=== PATIENT | male | born 1990 | race American Indian/Alaskan Native ===

== ENCOUNTER 2017-02-27 12:57 | Emergency (ER) | payer OTHER ==
[2017-02-27 13:09] VITALS: BP 159/100
[2017-02-27] MEDS ORDERED: BOOSTRIX IM ONE (13:22)
[2017-02-27] MEDS ORDERED: XYLOCAINE 1% MPF 5 mL INFILTRATI ONE (13:22)
--- NOTE | 2017-02-27 13:23 | Emergency Department Report ---
ED Laceration HPI - HPI Chief Complaint: Wound/Laceration Stated Complaint: RT ARM PAIN Time Seen by Provider: 02/27/17 13:19 Occurred When: Today Location: Upper Extremity Severity: moderate Tetanus Status: Not up to Date Laceration Symptoms: No Foreign Body Sensation, No Numbness, No Weakness, No Pain ED Review of Systems ROS: Stated complaint: RT ARM PAIN Other details as noted in HPI Comment: All other systems reviewed and negative Constitutional: no symptoms reported, see HPI Eyes: as per HPI ENT: as per HPI Respiratory: no symptoms reported Cardiovascular: as per HPI Endocrine: no symptoms reported Gastrointestinal: as per HPI Genitourinary: as per HPI Musculoskeletal: as per HPI Skin: as per HPI, other (ra lac) Neurological: as per HPI Psychiatric: as per HPI Hematological/Lymphatic: as per HPI ED Past Medical Hx - Past Medical History Previous Medical History?: No - Surgical History Past Surgical History?: No - Social History Smoking Status: Never Smoker Substance Use Type: None - Medications Home Medications: Home Medications Medication Instructions Recorded Confirmed Last Taken Type Amoxicillin [Trimox CAP] 500 mg PO BID #20 capsule 02/27/17 Unknown Rx Laceration Physical Exam - Exam General: Vital signs noted. No distress. Alert and acting appropriately. superficial wound ra n/v intact good pulses rapid cap refill bleeding controlled Laceration Location: Upper Extremity Full Body Front + Back: 1 - area of lac Laceration Exam: Yes Normal Distal CMS, No Foreign Body, No Exposed Tendon, Vessel, or Nerve, No Tendon Injury ED Course Vital Signs 02/27/17 12:58 Temperature 98.9 F Pulse Rate 65 Respiratory 15 Rate Blood Pressure 159/100 O2 Sat by Pulse 100 Oximetry - Reevaluation(s) Reevaluation #1: 02/27/17 14:25 to er p cutting arm on fish tank n/v intact sutured tolerated well dc instructions provided - Laceration /Wound Repair right arm Wound Location: lower extremity Wound Length (cm): 5 Wound's Depth, Shape: superficial Wound Explored: clean Irrigated w/ Saline (ccs): 20 Betadine Prep?: Yes Anesthesia: 1% Lidocaine Volume Anesthetic (ccs): 2 Wound Debrided: minimal Wound Repaired With: sutures Suture Size/Type: 4:0, nylon Number of Sutures: 13 Layer Closure?: No Sterile Dressing Applied?: Yes Progress: tolerated well ED Medical Decision Making - Medical Decision Making lac repair Critical care attestation.: If time is entered above; I have spent that time in minutes in the direct care of this critically ill patient, excluding procedure time. ED Disposition Clinical Impression: Laceration Disposition: DC-01 TO HOME OR SELFCARE Is pt being admited?: No Does the pt Need Aspirin: No Condition: Stable Instructions: Suture Care (ED), Laceration (ED) Additional Instructions: keep clean and covered minimize bending of the arm ice and elevation today motrin or tylenol for pain change dressing every 12 hours clean w soap and water the recover with guaze and the abbey wrap return as discussed to have sutures removed med as ordered Prescriptions: Amoxicillin [Trimox CAP] 500 mg PO BID #20 capsule Referrals: PRIMARY CARE, [Primary Care Provider] - 3-5 Days Forms: Work/School Release Form(ED) Time of Disposition: 14:11
== END 2017-02-27 14:20 | disposition home or self-care (01) ==
LOC: ED 12:57
DX: S41.111A Laceration without foreign body of right upper arm, initial encounter (principal); X58.XXXA Exposure to other specified factors, initial encounter; Y93.89 Activity, other specified; Y92.89 Other specified places as the place of occurrence of the external cause; Y99.8 Other external cause status
CPT/HCPCS: 90471; 90715

== ENCOUNTER 2017-06-12 15:20 | Emergency (ER) | payer SELFPAY ==
[2017-06-12 15:49] LABS: Basophils % (Auto) 0.7 % (0.0-1.8); Eosinophils % (Auto) 1.9 % (0.0-4.3); Hematocrit 43.4 % (35.5-45.6); Hemoglobin 14.6 gm/dl (11.8-15.2); Mean Corpuscular HGB Conc 34 % (32-34); Mean Corpuscular Hemoglobin 30 pg (28-32); Mean Corpuscular Volume 90 fl (84-94); Platelet Count 186 K/mm3 (140-440); Red Blood Count 4.84 M/mm3 (3.65-5.03); Red Cell Distribution Width 13.4 % (13.2-15.2); White Blood Count 3.9 K/mm3 (4.5-11.0)
[2017-06-12 16:00] LABS: Urine Drugs of Abuse Note Disclamer
[2017-06-12 16:09] LABS: Anion Gap 17 mmol/L; BUN/Creatinine Ratio 16; Blood Urea Nitrogen 16 mg/dL (9-20); Calcium 9.4 mg/dL (8.4-10.2); Carbon Dioxide 25 mmol/L (22-30); Glucose 89 mg/dL (75-100); Potassium 4.2 mmol/L (3.6-5.0); Sodium 140 mmol/L (137-145)
[2017-06-12 16:13] LABS: Bilirubin,Urine NEG (Negative); Blood,Urine NEG (Negative); Ketones,Urine NEG (Negative); Leukocyte Esterase,Urine NEG (Negative); Mucus,Urine FEW /HPF; Nitrite,Urine NEG (Negative); Protein,Urine <15 mg/dL mg/dL (Negative); Urobilinogen,Urine < 2.0 mg/dL (<2.0); WBC,Urine < 1.0 /HPF (0.0-6.0)
--- NOTE | 2017-06-12 20:45 | Emergency Department Report ---
HPI - General Chief Complaint: Medical Clearance Time Seen by Provider: 06/12/17 20:24 - HPI HPI: This is a 26-year-old Afro-[place]enian male who presents to the emergency department with complaint of some anger issues and hoping to get some help with anger management counseling. He says that he will get set off or something will trigger his anger and he will try to remove himself from the situation but this is not always feasible as he does have a full-time job. Sometimes he tries to compartmentalize or internalize this but he says that it will "fester" and he feels that has to be dealt with. He did a Internet search for anger management counseling and found a facility called [facility], but says that when he went to see that place or spoke to them that he was told that he needed to be a court order to attend their facility. He denies any suicidal or homicidal ideations or any hallucinations. He denies any diagnosed psychiatric conditions or past medical history. ED Past Medical Hx - Past Medical History Previous Medical History?: No - Surgical History Past Surgical History?: No - Social History Smoking Status: Never Smoker Substance Use Type: None - Medications Home Medications: Home Medications Medication Instructions Recorded Confirmed Last Taken Type Amoxicillin [Trimox CAP] 500 mg PO BID #20 capsule 02/27/17 Unknown Rx ED Review of Systems ROS: Stated complaint: MEDICAL EVALUATION FOR ANGER Other details as noted in HPI Comment: All other systems reviewed and negative Constitutional: denies: chills, fever Eyes: denies: eye pain, eye discharge, vision change ENT: denies: ear pain, throat pain Respiratory: denies: cough, shortness of breath, wheezing Cardiovascular: denies: chest pain, palpitations Gastrointestinal: denies: abdominal pain, nausea, diarrhea Genitourinary: denies: urgency, dysuria Musculoskeletal: denies: back pain, joint swelling, arthralgia Skin: denies: rash, lesions Neurological: denies: headache, weakness, paresthesias Psychiatric: denies: auditory hallucinations, visual hallucinations, homicidal thoughts, suicidal thoughts Physical Exam - Physical Exam Vital Signs: Vital Signs 06/12/17 06/12/17 15:27 19:45 Temperature 98.6 F 98.2 F Pulse Rate 66 60 Respiratory 16 18 Rate Blood Pressure 124/73 122/83 O2 Sat by Pulse 99 98 Oximetry Physical Exam: GENERAL: The patient is well-developed well-nourished. HENT: Normocephalic. Atraumatic. Patient has moist mucous membranes. EYES: Extraocular motions are intact. Pupils equal reactive to light bilaterally. NECK: Supple. Trachea is midline. CHEST/LUNGS: Clear to auscultation. There is no respiratory distress noted. HEART/CARDIOVASCULAR: Regular. There is no tachycardia. There is no gallop rub or murmur. ABDOMEN: Abdomen is soft, nontender. Patient has normal bowel sounds. There is no abdominal distention. SKIN: Skin is warm and dry. NEURO: The patient is awake, alert, and oriented. The patient is cooperative. The patient has no focal neurologic deficits. The patient has normal speech and gait. MUSCULOSKELETAL: There is no tenderness or deformity. There is no limitation range of motion. There is no evidence of acute injury. ED Course Vital Signs 06/12/17 06/12/17 15:27 19:45 Temperature 98.6 F 98.2 F Pulse Rate 66 60 Respiratory 16 18 Rate Blood Pressure 124/73 122/83 O2 Sat by Pulse 99 98 Oximetry ED Medical Decision Making - Lab Data Result diagrams: 06/12/17 15:38 06/12/17 15:38 - Medical Decision Making The patient is here because he admits to a anger problem and is looking for some treatment and/or counseling for anger management. He does not have any suicidal or homicidal ideations or any hallucinations. As far as I know, there was no altercations or threats made that required him to come into the hospital today. He has been calm and appropriate and is of sound mind. For all these reasons the patient does not appear to be a candidate to be made a 1013. His labs are unremarkable. Vital signs stable throughout his ED course. I spoke to the crisis counselor who recommended referral to the [facility]. All this information was given to the patient and he understands that he should go there either as a walk-in or to make an appointment but to return to the emergency Department with any worsening of his symptoms or any distress. Discharge instructions were given while he is in the emergency department and all questions have been answered. - Differential Diagnosis bipolar disorder, mood disorder, substance abuse Critical Care Time: No Critical care attestation.: If time is entered above; I have spent that time in minutes in the direct care of this critically ill patient, excluding procedure time. ED Disposition Clinical Impression: Anger reaction Disposition: DC-01 TO HOME OR SELFCARE Is pt being admited?: No Condition: Stable Additional Instructions: Please follow up with the [facility] facility regarding your anger management. I believe that they take walk-ins but he may want to call and make an appointment. Return to the emergency Department with any worsening of your symptoms or any acute distress. Referrals: [facility] [Outside] - 3-5 Days [facility] [Outside] - 3-5 Days Time of Disposition: 22:23
[2017-06-12 21:19] VITALS: BP 124/74
== END 2017-06-12 22:45 | disposition home or self-care (01) ==
LOC: ED 15:20
DX: R45.4 Irritability and anger (principal)
CPT/HCPCS: 36415; 80048; 80307; 81001; 85025; 99283; G0480; 80320

== ENCOUNTER 2021-09-06 10:52 | Emergency (ER) | payer SELFPAY ==
[2021-09-06 11:01] VITALS: BP 132/78
[2021-09-06] MEDS ORDERED: levETIRAcetam 1000 MG/NS 0.75% 1,000 MG/100 ML BAG IV ONE (11:08)
[2021-09-06] MEDS ORDERED: SODIUM CHLORIDE 0.9% 1000 ML 1,000 ML IV ONE (11:08)
--- NOTE | 2021-09-06 11:37 | Emergency Department Report ---
ED Seizure HPI - General Chief Complaint: Seizure Stated Complaint: POSS SEIZURE Time Seen by Provider: 09/06/21 11:07 Source: EMS Mode of arrival: Stretcher Limitations: No Limitations - History of Present Illness Initial Comments: seizures medicated with versed and ativan in the field he was [place] in [place] [employer] [facility] [place] for having seizure, he was combative in the field and was given ativan and versed Complaint: seizure -: Sudden Witnessed:: Yes Trauma: No Place: street/outdoors Possible Precipitating Event: medication - Related Data Previous Rx's Medication Instructions Recorded Last Taken Type Amoxicillin [Trimox CAP] 500 mg PO BID #20 capsule 02/27/17 Unknown Rx Allergies Allergy/AdvReac Type Severity Reaction Status Date / Time No Known Allergies Allergy Verified 06/12/17 15:27 ED Review of Systems ROS: Stated complaint: POSS SEIZURE Other details as noted in HPI Constitutional: denies: chills, fever Eyes: denies: eye pain, eye discharge, vision change ENT: denies: ear pain, throat pain Respiratory: denies: cough, shortness of breath, wheezing Cardiovascular: denies: chest pain, palpitations Endocrine: no symptoms reported Gastrointestinal: denies: abdominal pain, nausea, diarrhea Genitourinary: denies: urgency, dysuria Musculoskeletal: denies: back pain, joint swelling, arthralgia Skin: denies: rash, lesions Neurological: denies: headache, weakness, paresthesias Psychiatric: denies: anxiety, depression Hematological/Lymphatic: denies: easy bleeding, easy bruising ED Past Medical Hx - Past Medical History Previous Medical History?: Yes Hx Seizures: Yes - Social History Smoking Status: Never Smoker Substance Use Type: None - Medications Home Medications: Home Medications Medication Instructions Recorded Confirmed Last Taken Type Amoxicillin [Trimox CAP] 500 mg PO BID #20 capsule 02/27/17 Unknown Rx ED Physical Exam - General Limitations: No Limitations General appearance: alert, in no apparent distress, other (looks unkempt ) - Head Head exam: Present: atraumatic, normocephalic - Eye Eye exam: Present: normal appearance - ENT ENT exam: Present: mucous membranes moist - Neck Neck exam: Present: normal inspection - Respiratory Respiratory exam: Present: normal lung sounds bilaterally. Absent: respiratory distress - Cardiovascular Cardiovascular Exam: Present: regular rate, normal rhythm. Absent: systolic murmur, diastolic murmur, rubs, gallop - GI/Abdominal GI/Abdominal exam: Present: soft, normal bowel sounds - Rectal Rectal exam: Present: deferred - Extremities Exam Extremities exam: Present: normal inspection - Back Exam Back exam: Present: normal inspection - Neurological Exam Neurological exam: Present: alert, oriented X3 - Psychiatric Psychiatric exam: Present: normal mood, agitated, flat affect - Skin Skin exam: Present: warm, dry, intact, normal color. Absent: rash ED Course Vital Signs 09/06/21 11:00 Temperature 98.2 F Pulse Rate 92 H Respiratory 20 Rate Blood Pressure 132/78 [Left] O2 Sat by Pulse 97 Oximetry - Reevaluation(s) Reevaluation #1: 09/06/21 11:34 pt was brought in by ambulance after giving ativan and versed for being combative , pt expressed that he refused medication and and doesn;t want keppra, agreed that hewill get fluids and get his settled, but he ran away and eloped Critical care attestation.: If time is entered above; I have spent that time in minutes in the direct care of this critically ill patient, excluding procedure time. ED Disposition Clinical Impression: Seizure Disposition: 07 LEFT AGAINST MEDICAL ADVICE Is pt being admited?: No Does the pt Need Aspirin: No Condition: Stable Instructions: Epilepsy, [id number]
== END 2021-09-07 09:27 | disposition left against medical advice (07) ==
LOC: ED 10:52
DX: R56.9 Unspecified convulsions (principal); Z79.899 Other long term (current) drug therapy
CPT/HCPCS: 99283; J1953; J7030; Q0162